=== PATIENT | male | born 1980 | race Caucasian/White ===

== ENCOUNTER 2018-03-24 21:46 | Emergency (ER) | payer OTHER ==
[~2018-03-24] VITALS: Ht 175.3 cm; Wt 91.9 kg
[2018-03-24 21:50] VITALS: TEMP 37.1; Ht 175.3 cm; Wt 91.9 kg
--- NOTE | 2018-03-24 23:13 | DIAGNOSTIC IMAGING REPORT ---
R HAND MIN 3 VIEWS ROUTINE HISTORY: 37 years-old Male RIGHT HAND, EVAL FX acute right hand pain COMPARISON: None available TECHNIQUE: 3 views of the right hand FINDINGS: No acute fracture, dislocation or significant degenerative changes. Soft tissues are unremarkable without opaque foreign body. IMPRESSION: No acute fracture or opaque foreign body. The above report was generated using voice recognition software. It may contain grammatical, syntax or spelling errors. Electronically signed by: Daniel Wilkes M.D. 03/24/2018 11:11 PM Dictated Date/Time: 03/24/2018 11:10 PM
[2018-03-24] MEDS ORDERED: IBUP-1050 PO (23:26)
[2018-03-24] MEDS ORDERED: NAPR1TAB9 PO (23:26)
[2018-03-24] MEDS ORDERED: AMOX875T PO (23:27)
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
[2018-03-24 23:39] VITALS: PULSE 99; O2SAT 99
[2018-03-25 01:30] LABS: HEP C IGG 13 YRS+OLDER_RFLX NEG (NEG)
== END 2018-03-24 23:38 | disposition home or self-care (01) ==
LOC: C.EDB 21:47 → C.EDD 23:38
DX: S61.451A Open bite of right hand, initial encounter (principal); S60.221A Contusion of right hand, initial encounter; Y04.1XXA Assault by human bite, initial encounter; Y04.0XXA Assault by unarmed brawl or fight, initial encounter; Y99.0 Civilian activity done for income or pay; Y92.149 Unspecified place in prison as the place of occurrence of the external cause